=== PATIENT | female | born 1945 | race Caucasian/White ===

== ENCOUNTER 2024-05-28 12:11 | Emergency (ER) | payer MEDICARE ==
[~2024-05-28] VITALS: Ht 160 cm; Wt 38.2 kg
[2024-05-28] MEDS ORDERED: PANCREATIN (12:27)
[2024-05-28] MEDS ORDERED: CLONAZEPAM1 M1 PO (12:27)
[2024-05-28] MEDS ORDERED: LEXAPRO5 MG PO (12:27)
[2024-05-28] MEDS ORDERED: NS 1,000 ML IV ONE (12:45)
[2024-05-28 13:06] LABS: HEMOGLOBIN 9.8 g/dL (12.5-16.0); MEAN CELL VOLUME 105 fl (78-100); MEAN CORPUSCULAR HEMOGLOBIN 33 pg (27-31); MEAN CORPUSCULAR HGB CONC 32 g/dL (33-37); MEAN PLATELET VOLUME 11.9 fl (7.4-10.4); PLATELET COUNT 149 K/mm3 (130-400); RED BLOOD COUNT 2.96 M/mm3 (4.10-5.30); RED CELL DISTRIBUTION WIDTH 14.4 % (11.5-14.5)
[2024-05-28] MEDS ORDERED: Ondansetron 4 MG/2 ML VIAL IV ONE (13:15)
[2024-05-28 13:16] LABS: ALBUMIN 3.3 g/dL (3.4-4.8)
[2024-05-28 13:17] LABS: CALCIUM 8.4 mg/dL (8.3-10.5)
[2024-05-28 13:18] LABS: TOTAL PROTEIN 5.8 g/dL (6.2-8.1)
[2024-05-28 13:20] LABS: TOTAL BILIRUBIN 0.3 mg/dL (0.2-1.2)
[2024-05-28 13:21] LABS: WHITE BLOOD COUNT 39.4 K/mm3 (4.8-10.8)
[2024-05-28] MEDS ORDERED: Iohexol 300 - 100 ML VIAL IV ONE (13:27)
[2024-05-28 13:51] LABS: BAND 2 % (0-10); LYMPHOCYTE 6 % (20-51); METAMYELOCYTE 2 % (0-0); NEUTROPHILS 78 % (42-75)
[2024-05-28 13:52] LABS: MONOCYTE 12 % (3-10); OVALOCYTES 1+; POLYCHROMASIA 1+
[2024-05-28 13:53] LABS: NUCLEATED RED BLOOD CELL 2 (0-6)
[2024-05-28] MEDS ORDERED: Piperacillin/Tazobactam Sodium 3.375 GM in NS 100 ML IV ONE (14:30)
[2024-05-28] MEDS ORDERED: AMOXICILLIN AND1 TA2 PO (14:43)
[2024-05-28] MEDS ORDERED: ZOFRAN ODT4 MG PO (14:43)
[2024-05-28 15:14] VITALS: BP 101/56
[2024-05-31] MEDS ORDERED: CIPRO500 M1 PO (10:56)
== END 2024-05-28 15:17 | disposition home or self-care (01) ==
LOC: ED 12:11
PROVIDERS: Family Medicine
DX: K92.1 Melena (principal); C50.919 Malignant neoplasm of unspecified site of unspecified female breast; Z87.891 Personal history of nicotine dependence; Z79.899 Other long term (current) drug therapy
CPT/HCPCS: J2405; J2543; J7030; Q9967